=== PATIENT | female | born 1950 | race Caucasian/White ===

== ENCOUNTER → 2016-07-14 | Outpatient (CLI) | payer MEDICARE, OTHER | LOC: HEART 5 12:38 | DX: I20.9 Angina pectoris, unspecified (principal) | CPT/HCPCS: 93306 ==

== ENCOUNTER → 2020-05-21 | Outpatient (CLI) | payer MEDICARE, OTHER ==
[~2020-05-21] MED LIST: ALENDRONATE SOD70 MG PO; ANTIVERT 25MG T25 MG PO; CARAFATE1 GM PO; CRESTOR20 MG PO; HYDROCODON-ACE1 EAC5 PO; K-DUR TAB 20 M20 MEQ PO; LASIX20 MG PO; LIORESAL TAB 1010 MG PO; NORVASC 5 MG TAB5 MG PO; OMEPRAZOLE40 MG PO; PAXIL20 MG PO; VENTOLIN HFA 66.7 GM INH; VISTARIL 50 MG50 MG PO; ZANTAC300 MG PO
== END ==
LOC: EMI 08:15
DX: G44.89 Other headache syndrome (principal); G43.009 Migraine without aura, not intractable, without status migrainosus
CPT/HCPCS: 70551

== ENCOUNTER → 2020-09-08 | Outpatient (CLI) | payer MEDICARE, OTHER | LOC: US 10:38 | PROVIDERS: Internal Medicine Nephrology | DX: N17.9 Acute kidney failure, unspecified (principal); E78.5 Hyperlipidemia, unspecified | CPT/HCPCS: 36415; 80053; 82550; 82570; 84156; 89050 ==

== ENCOUNTER → 2021-02-24 | Outpatient (CLI) | payer MEDICARE, OTHER | LOC: US 12:46 | PROVIDERS: Internal Medicine Nephrology | DX: N18.2 Chronic kidney disease, stage 2 (mild) (principal); E78.5 Hyperlipidemia, unspecified; N28.1 Cyst of kidney, acquired | CPT/HCPCS: 36415; 80053; 82550; 82570; 84156 ==

== ENCOUNTER → 2021-07-01 | Outpatient (CLI) | payer MEDICARE, OTHER ==
[2021-07-01 12:30] LABS: BUN/CREATININE RATIO 14 (0-10)
[2021-07-02 17:09] LABS: ATYPICAL PANCA <1:20 titer (Neg:<1:20); CYTOPLASMIC (C-ANCA) <1:20 titer (Neg:<1:20); PERINUCLEAR (P-ANCA) <1:20 titer (Neg:<1:20)
[2021-07-06 13:12] LABS: ANTIHISTONE ANTIBODIES 0.4 Units (0.0-0.9)
== END ==
LOC: LAB 11:30
PROVIDERS: Internal Medicine Nephrology
DX: N18.2 Chronic kidney disease, stage 2 (mild) (principal)
CPT/HCPCS: 36415; 80053; 82570; 83735; 84156; 86256

== ENCOUNTER → 2021-11-03 | Outpatient (CLI) | payer MEDICARE, OTHER | LOC: LAB 10:42 | PROVIDERS: Internal Medicine Nephrology | DX: N18.2 Chronic kidney disease, stage 2 (mild) (principal) | CPT/HCPCS: 36415; 80053; 82570; 84156 ==

== ENCOUNTER 2022-01-16 17:32 | Emergency (ER) | payer MEDICARE, OTHER | END 2022-01-16 22:09 | disposition left against medical advice (07) | LOC: ER1 17:32 | DX: U07.1 COVID-19 (principal); I11.9 Hypertensive heart disease without heart failure; Z85.3 Personal history of malignant neoplasm of breast | CPT/HCPCS: 71045; 99283; U0002 ==